=== PATIENT | male | born 1995 | race Two or more races ===

== ENCOUNTER 2020-11-10 15:08 | Emergency (ER) | payer MEDICAID ==
[~2020-11-10] VITALS: Ht 182.9 cm; Wt 81.8 kg
[2020-11-10 17:59] VITALS: BP 110/70
== END 2020-11-10 18:00 | disposition home or self-care (01) ==
LOC: EMS 15:14
DX: F41.0 Panic disorder [episodic paroxysmal anxiety] (principal); F17.210 Nicotine dependence, cigarettes, uncomplicated; F12.90 Cannabis use, unspecified, uncomplicated; I10 Essential (primary) hypertension
CPT/HCPCS: 93005; 99283